=== PATIENT | female | born 1940 | race Caucasian/White ===

== ENCOUNTER 2016-10-01 18:55 | Inpatient (IN) | payer MEDICARE, BC ==
[~2016-10-01] VITALS: Ht 165.1 cm; Wt 79.2 kg
[2016-10-01] MEDS ORDERED: SODIUM CHLORIDE 0.9% 1,000 ML ONE (22:06)
[2016-10-01] MEDS ORDERED: ONDANSETRON 4 MG VIAL ONE (22:16)
[2016-10-01] MEDS ORDERED: DILAUDID 1 MG/ML AMP ONE (22:16)
[2016-10-01] MEDS ORDERED: CEFTRIAXONE 1 GM VIAL ONE (23:29)
[2016-10-01] MEDS ORDERED: SODIUM CHLORIDE 0.9% 100 ML IV ONE (23:29)
[2016-10-01] MEDS ORDERED: DIPHENHYDRAMINE 50 MG/ML VIAL ONE (23:56)
[2016-10-02] MEDS ORDERED: SOD CHLOR 0.9% 1000 ML IV SCH (00:30)
[2016-10-02] MEDS ORDERED: ACETAMINOPHEN 325 MG TAB PO PRN (00:30)
[2016-10-02] MEDS ORDERED: ONDANSETRON 4 MG VIAL IV PUSH PRN (00:30)
[2016-10-02 01:57] VITALS: BP_SYST 168; RESP 20; TEMP 97.3
[2016-10-02 01:59] VITALS: Ht 165.1 cm; Wt 79.2 kg
[2016-10-02 07:19] VITALS: BP_SYST 127; RESP 16; TEMP 97.4
[2016-10-02] MEDS ORDERED: CEFTRIAXONE 1 GM in SODIUM CHLORIDE 0.9% 50 ML IV SCH (09:00)
[2016-10-02] MEDS ORDERED: GLUCAGON 1 MG VIAL IM PRN (10:55)
[2016-10-02] MEDS ORDERED: DEXTROSE 50% SYRINGE 50 ML IV PRN (10:55)
[2016-10-02 11:04] VITALS: BP_SYST 119; RESP 18; TEMP 98.1
[2016-10-02] MEDS: FAMOTIDINE 20 MG INJ IV SCH ×2 (12:05→20:40)
[2016-10-02] MEDS: METHYLPRED SOD SUCC 40 MG VIAL IV SCH ×3 (12:05→23:52)
[2016-10-02] MEDS: DIPHENHYDRAMINE 25 MG CAP PO SCH ×3 (12:05→20:38)
[2016-10-02] MEDS: BUPROPION SR 150 MG TAB PO SCH (12:06)
[2016-10-02] MEDS: ROPINIROLE 0.25 MG TAB PO SCH ×2 (12:06→20:38)
[2016-10-02] MEDS: CYCLOSPORINE OP SOLN EYE EACH SCH ×2 (12:06→20:38)
[2016-10-02] MEDS: CETIRIZINE 10 MG TAB PO SCH (12:06)
[2016-10-02] MEDS: MONTELUKAST 10 MG TAB PO SCH (12:06)
[2016-10-02] MEDS: ENOXAPARIN 30 MG/0.3 ML SYR SUBQ SCH (12:07)
[2016-10-02] MEDS: DULoxetine 30 MG CAP PO SCH ×2 (12:07→20:42)
[2016-10-02] MEDS: Carvedilol 6.25 MG TAB PO SCH ×2 (12:07→20:38)
[2016-10-02] MEDS: SODIUM CHLOR 0.9% W/KCL 20MEQ 1,000 ML IV SCH ×2 (12:08→23:51)
[2016-10-02 15:37] VITALS: BP_SYST 124; RESP 18; TEMP 97.3
[2016-10-02 20:31] VITALS: BP_SYST 131; RESP 15; TEMP 98
[2016-10-02] MEDS ORDERED: glipiZIDE 5 MG TAB PO SCH (21:00)
[2016-10-02 23:38] VITALS: BP_SYST 133; RESP 18; TEMP 97.8
[2016-10-03 04:20] VITALS: BP_SYST 114; RESP 18; TEMP 97.7
[2016-10-03 07:34] VITALS: BP_SYST 138; RESP 18; TEMP 98.1
[2016-10-03] MEDS: METHYLPRED SOD SUCC 40 MG VIAL IV SCH (08:37)
[2016-10-03] MEDS: FAMOTIDINE 20 MG INJ IV SCH (08:37)
[2016-10-03] MEDS: CYCLOSPORINE OP SOLN EYE EACH SCH (08:37)
[2016-10-03] MEDS: DULoxetine 30 MG CAP PO SCH (08:38)
[2016-10-03] MEDS: MONTELUKAST 10 MG TAB PO SCH (08:38)
[2016-10-03] MEDS: ENOXAPARIN 30 MG/0.3 ML SYR SUBQ SCH (08:38)
[2016-10-03] MEDS: CETIRIZINE 10 MG TAB PO SCH (08:39)
[2016-10-03] MEDS: ROPINIROLE 0.25 MG TAB PO SCH (08:39)
[2016-10-03] MEDS: Carvedilol 6.25 MG TAB PO SCH (08:39)
[2016-10-03] MEDS: DIPHENHYDRAMINE 25 MG CAP PO SCH (08:39)
[2016-10-03] MEDS: BUPROPION SR 150 MG TAB PO SCH (08:39)
[2016-10-03 12:04] VITALS: BP_SYST 138; RESP 18; TEMP 98.1
== END 2016-10-03 12:28 | disposition home or self-care (01) | DRG 103 ==
LOC: ENRESERV → ENRESERVTM → ENRESERVDT → ER 18:55 → ENPENDDIS 23:44 → EMR 23:44 → 5THW 10-02 01:38
PROVIDERS: ADMIT Internal Medicine; ATTEND Internal Medicine
DX: R51 Headache (principal); E11.42 Type 2 diabetes mellitus with diabetic polyneuropathy; R27.0 Ataxia, unspecified; R53.1 Weakness; F32.9 Major depressive disorder, single episode, unspecified; F41.9 Anxiety disorder, unspecified; M19.90 Unspecified osteoarthritis, unspecified site; G25.81 Restless legs syndrome; E66.9 Obesity, unspecified; Z68.29 Body mass index [BMI] 29.0-29.9, adult; J45.909 Unspecified asthma, uncomplicated; H04.129 Dry eye syndrome of unspecified lacrimal gland; I10 Essential (primary) hypertension; G47.00 Insomnia, unspecified; K21.9 Gastro-esophageal reflux disease without esophagitis
CPT/HCPCS: 36415; 70450; 71010; 80048; 80053; 81001; 82140; 82306; 82553; 82607; 82746; 82947; 83735; 83880; 84439; 84443; 84484; 85025; 85610; 87088; 87186; 93005; 96361; 96365; 96375